=== PATIENT | female | born 1975 | race Asian ===

== ENCOUNTER 2020-02-13 17:37 | Emergency (ER) | payer BC ==
[~2020-02-13] VITALS: Ht 162.6 cm; Wt 58.5 kg
[2020-02-13 17:42] VITALS: Ht 162.6 cm; Wt 58.5 kg
[2020-02-13 20:29] VITALS: BP 118/68
== END 2020-02-13 20:30 | disposition home or self-care (01) ==
LOC: ED 17:37
DX: J40 Bronchitis, not specified as acute or chronic (principal)
CPT/HCPCS: 87804; Q0092